=== PATIENT | male | born 1985 | race Caucasian/White ===

== ENCOUNTER 2024-06-19 15:18 | Outpatient (CLI) | payer BC | END 2024-06-19 15:19 | disposition home or self-care (01) | LOC: NAV RAD 15:18 | PROVIDERS: ATTEND Nurse Practitioner Family | DX: M79.644 Pain in right finger(s) (principal); R05.1 Acute cough; M18.11 Unilateral primary osteoarthritis of first carpometacarpal joint, right hand ==